=== PATIENT | female | born 1945 ===

== ENCOUNTER 2023-03-02 02:31 | Observation (INO) | payer MEDICARE, OTHER ==
[2023-03-02] VITALS (15 sets, daily range): BP systolic 111–136; BP diastolic 53–72; PULSE 64–76; TEMP 98–98.9
[~2023-03-02] VITALS: Ht 160 cm; Wt 64.9 kg
[2023-03-02] MEDS ORDERED: IPRATROPIUM BROM3 M1 (04:23)
[2023-03-02] MEDS ORDERED: LOTENSIN HCT 101 TAB PO (04:24)
[2023-03-02] MEDS ORDERED: ZOCOR 40MG40 MG PO (04:24)
[2023-03-02] MEDS ORDERED: GLUCOPHAGE850 MG/TAB PO (04:24)
[2023-03-02] MEDS ORDERED: PROAIR HFA0.09 MG/AC IH (04:25)
--- NOTE | 2023-03-02 04:59 | NUR ---
Patient arrived to the floor via POV at 0315 from [place] with daughter Seble, inserted IV on her right wrist, started LR at 100cc/hr as ordered. Patient vomited scant yellowish emesis, IV zofran given, denies pain at this time, hospital policies orientated, admission assessment and intake done, voided without any difficulty, VSS, remains on room air, NPO maintained, denies further needs, call light and personal items within reach, will continue to monitor.
[2023-03-02] MEDS ORDERED: ASPIRIN 81M81 MG/TA2 PO (05:15)
[2023-03-02] MEDS ORDERED: VITAMIN D31000 IU PO (05:17)
[2023-03-02] MEDS ORDERED: MULTI VITAMINS1 TAB PO (05:20)
[2023-03-02] MEDS ORDERED: VITAMIN E 400 U4001 PO (05:22)
[2023-03-02] MEDS ORDERED: AMOXICILLIN 8751 TAB PO (05:24)
--- NOTE | 2023-03-02 08:23 | NUR ---
Dr.Pauls call. Plan of care reviewed. Patient nervous for surgery, but agreeable, offered to call family, she reports her daughter should be back soon. Patient placed in fresh gown and socks. She was up to the bathroom & voided. Glasses & Dentures removed. Lr to gravity per orders. Consent obtained. Patient to Or with Allyssa will await her return.
--- NOTE | 2023-03-02 10:20 | NUR ---
Director Of Video Analytics rounds: Patient's Daughter Seble was in hallway near surgical waiting room. Director Of Video Analytics provided her with some ice water. Seble has had only an hour of sleep - she had gone home to care for her dog, got an hour of sleep, and is now returned. Director Of Video Analytics provided supportive listening and prayer.
--- NOTE | 2023-03-02 11:31 | NUR ---
Patient has returned from OR. She is sleepy. Arousable to name. Her daughter at bedside. Vss on O2. Ice chips provided. Scds ble. IVf as ordered. Lap site x3 dressing CDI. Will closely monitor
--- NOTE | 2023-03-02 15:09 | NUR ---
Patient more awake. Vss on O2. Cough remains productive at times. Pudding with pain medication. Pain elevated with movement. Patient was sleeping soundly and was incontinent of urine. Fresh linens & pericares provided. Patient umbilical site was oozing. New gauze and tape for more of a pressure dressing. Patient afebrile, but reports feeling hot. Socks and blankets removed. Will monitor
--- NOTE | 2023-03-02 17:48 | NUR ---
Patient feeling better after pain medications. Dinner ordered. Vss. O2 92% on room air, O2 left on at this time via NC. Incisions dressings CDI. Scds ble. rounded this evening & plan of care reviewed.
--- NOTE | 2023-03-02 20:04 | NUR ---
Patient more awake at this time, IV infusing well on right wrist, denies pain,N/V, 3 lap sites dressing CDI, reports she has not pass gas yet, encouraged ambulation but not agreeable at this time, all needs met, plan of care discussed for this shift to include meds/pain, calling for questions or concerns, call light and personal items within reach, will continue to monitor.
--- NOTE | 2023-03-02 23:24 | NUR ---
Patient reports pain to abdomen, PS of 2/10, [place] given per request and as ordered PRN, will continue to monitor.
[2023-03-03 03:27] VITALS: BP 112/57; PULSE 72; TEMP 98.3
--- NOTE | 2023-03-03 03:35 | NUR ---
Patient requested to take her SCD's off at this time.
--- NOTE | 2023-03-03 06:16 | NUR ---
Dressing to abdomen CDI at this time, denies further needs.
[2023-03-03 07:33] VITALS: BP 122/52; PULSE 60; TEMP 97.8
--- NOTE | 2023-03-03 08:55 | NUR ---
Pt. sitting up in bed. Pt. is a&OX3, assessment complete. INT to rt. wrist patent. Pt. reports pain to abd. at a 3 on pain scale and denies need for pain meds. Abd. incisions CDI. Pt. denies further needs, call light within reach.
[2023-03-03 09:10] VITALS: BP_SYST 122
[2023-03-03] MEDS ORDERED: NORCO 325 MG-51 TAB PO (09:18)
--- NOTE | 2023-03-03 11:35 | NUR ---
SW complete intake with patient. Patient states that she lives in [place] with Adam Renee [phone]. Patient provides that she does not utilize DME, independent with ADL's, and does not utilize HH services at this time. PCP is Dr. Menendez and pharmacy is [facility]. Patient appointed daughter Seble Mustafa as DPOA\HC during intake. Documentation presented, reviewed, completed signature witness by SW and nurse. Original documenation placed in charted and copies provided to patient. Patient provides she plans to return to her home upon DC. SW will continue to follow. DC plan: home
--- NOTE | 2023-03-03 12:00 | NUR ---
Pt. ready for discharge. INT discontinued from rt. wrist. Reviewed and gave pt. discharge paperwork. Pt. voices understanding. Pt. dressed and escorted out by wheelchair.
== END 2023-03-03 12:00 | disposition home or self-care (01) ==
LOC: SURG 02:31
PROVIDERS: ADMIT Surgery
DX: K80.12 Calculus of gallbladder with acute and chronic cholecystitis without obstruction (principal); J44.9 Chronic obstructive pulmonary disease, unspecified; R73.02 Impaired glucose tolerance (oral); F17.210 Nicotine dependence, cigarettes, uncomplicated
CPT/HCPCS: G0378; G0379; J0690; J1100; J1170; J2405; J2704; J3010; J7120

== ENCOUNTER 2023-03-03 13:14 | Emergency (ER) | payer MEDICARE, OTHER ==
[~2023-03-03] VITALS: Ht 162.6 cm; Wt 67.3 kg
[~2023-03-03 13:14] MED LIST: AMOXICILLIN 8751 TAB PO; ASPIRIN 81M81 MG/TA2 PO; GLUCOPHAGE850 MG/TAB PO; IPRATROPIUM BROM3 M1; LOTENSIN HCT 101 TAB PO; MULTI VITAMINS1 TAB PO; NORCO 325 MG-51 TAB PO; PROAIR HFA0.09 MG/AC IH; VITAMIN D31000 IU PO; VITAMIN E 400 U4001 PO; ZOCOR 40MG40 MG PO
[2023-03-03 14:28] VITALS: BP 134/85; PULSE 82; TEMP 96.4
== END 2023-03-03 14:28 | disposition home or self-care (01) ==
LOC: COL.ER 13:14
DX: G89.18 Other acute postprocedural pain (principal); R10.13 Epigastric pain; F17.200 Nicotine dependence, unspecified, uncomplicated